=== PATIENT | male | born 1975 | race Caucasian/White ===

== ENCOUNTER 2017-09-24 18:03 | Emergency (ER) | payer SELFPAY ==
--- NOTE | 2017-09-24 16:13 | RAD_ITS ---
STUDY: X-RAY CHEST REASON FOR EXAM: Male, 41 years old. Cough and confusion. TECHNIQUE: Single AP portable view of the chest. COMPARISON: None. FINDINGS: The lungs are poorly expanded. Vague medial right apical density may be summation artifact of the overlapping clavicle head, first rib, and calcified first costal cartilage. There is no demonstrated pleural abnormality. Normal size heart. Normal mediastinum and marc. Normal visualized pulmonary arteries. Normal visualized aortic arch and descending thoracic aorta. There are mild degenerative changes of the lower thoracic spine. Normal visualized ribs, clavicles, and shoulders. There is no demonstrated abnormality of the visualized soft tissue structures of the upper abdomen. RAD/Chest 1 View (Portable) IMPRESSION: X-ray examination of the chest limited by appointment or effort. Vague density versus summation artifact in the right apex. If no previous outside studies are available for comparison, follow-up apical lordotic view and/or repeat exam with improved inspiration advised. Electronically Signed: Silas Nieto MD at 19:30 EST , Service support ,
[2017-09-24 18:03] VITALS: PULSE 79
[2017-09-24 18:04] VITALS: BP 175/99; PULSE 58; RESP 21; TEMP 36.8; O2SAT 97; BMI 29.5
--- NOTE | 2017-09-24 18:56 | ED.RN ---
NEIGHBORS AT BEDSIDE, STATES PT DOES NOT USE ILLEGAL SUBSTANCES, NOR DRINK ETOH. TYPICALLY COMPLETELY INDEPENDENT, DOES OWN SHOPPING, TAKES CARE OF DOGS, LIVES ALONE. NEIGHBORS NOT AWARE OF ANY HEALTH HISTORY. PT CONTINUES TO ANSWER SOME QUESTIONS, MOST ANSWERS INAPPROPRIATE.
--- NOTE | 2017-09-24 19:10 | CT_ITS ---
STUDY: CT BRAIN WITHOUT CONTRAST REASON FOR EXAM: Male, 41 years old. Altered mental status and hypertensive RADIATION DOSAGE (If Supplied By Facility): CTDIvol = ( 44.99 ) mGy, DLP = ( 779.24 ) mGycm TECHNIQUE: Transaxial CT imaging of the brain was performed without administration of intravenous contrast material. Individualized dose optimization techniques were used for this CT. COMPARISON: None. FINDINGS: Normal soft tissue structures. Normal calvarium. Normal size ventricles and extra-axial spaces for the patient's age. Mild nonspecific diffuse cerebral edema.. Normal basal ganglia and thalami. Normal brainstem. Normal cerebellum. Extensive subarachnoid hemorrhage with intraventricular extension. There is prominence of the hemorrhage within the anterior aspect of the [place] of [place] raising question of ruptured aneurysm of the anterior communicating artery. MRA or CTA would be helpful for more definitive evaluation. There are no findings of an acute ischemic infarction. Mild mucosal thickening in the right maxillary sinus. There is an incompletely visualized lesion within the right maxilla possibly due to dental disease. 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 CTA or MRA recommended for more definitive evaluation N.B. : The above information has been verbally conveyed by Patrick Cosby MD to Dr. Gómez Schulte, Referring Physician, on 09/24/2017 20:13:11 (ET). Electronically Signed: Patrick Cosby MD at 19:59 EST , Service support , N.B. : The above information has been verbally conveyed by Patrick Cosby MD to Dr. Gómez Schulte, Referring Physician, on 09/24/2017 20:13:11 (ET).
--- NOTE | 2017-09-24 19:11 | EKG12_ITS ---
Test Reason : Blood Pressure : / mmHG Vent. Rate : 049 BPM Atrial Rate : 049 BPM P-R Int : 146 ms QRS Dur : 110 ms QT Int : 456 ms P-R-T Axes : 034 007 023 degrees QTc Int : 411 ms Sinus bradycardia with Premature atrial complexes Otherwise normal ECG Confirmed by EDDIE CARMICHAEL ([id number]), dictionary editor DEVANG SAMPSON ([id number]) on 09/26/2017 2:56:34 PM Referred By: MIKIE Confirmed By:EDDIE CARMICHAEL
--- NOTE | 2017-09-24 19:20 | NURSING ---
NO OLD EKG'S IN MUSE
[2017-09-24 19:34] LABS: Bacteria 0 SEEN /hpf (None Seen); Mucous, Urine 0 SEEN /hpf (<or=2+)
[2017-09-24 19:35] VITALS: PULSE 51; RESP 21; O2SAT 97
[2017-09-24 19:36] LABS: Color, Urine Yellow (Yellow); Glucose, Dipstick Normal (Normal); Ketone-Dipstick 15 mg/dl (Negative); Leukocyte Esterase-Dipstick 25 /ul (Negative); Nitrite-Dipstick Negative (Negative); Occult Blood-Urine 250 /ul (Negative); Protein-Dipstick 500 mg/dl (Negative); Urine Bilirubin Dipstick Negative (Negative); Urine Clarity Sl. Cloudy (Clear); Urine Urobilinogen Normal (Normal)
[2017-09-24 19:47] LABS: Absolute Lymphocyte Count 1.84 X10^3/ul (0.83-4.51); Absolute Neutrophil Count 17.3 X10^3/uL (2.0-7.7); Basophil# 0.01 X10^3/uL; Eosinophil# 0.01 X10^3/uL; Hematocrit 44.7 % (40-54); Hemoglobin 15.7 g/dl (13.0-16.5); Lymphocyte # 1.84 X10^3/ul (4.0); Lymphocyte % 8.7 % (19-41); Mean Corp Hgb Conc 35.1 g/gl (32-36); Mean Corpuscular Hgb 32.3 pg (27.0-32.0); Mean Platelet Vol. 10.4 fl (6.2-12.0); Monocyte# 1.99 X10^3/uL; Monocyte% 9.4 % (0-10); Neutrophil # 17.25 X10^3/uL (2.7-7.7); Neutrophil % 81.7 % (47-70); Platelet Count 254 K/mm3 (150-450); RBC Distribution Width CV 13.3 % (11.6-14.6); RBC Distribution Width SD 44.5 fl (35.1-43.9); Red Blood Count 4.86 M/mm3 (4.6-6.2); White Blood Count 21.2 K/mm3 (4.4-11.0)
[2017-09-24 19:48] LABS: International Normalized Ratio 1.1; POSITIVE COUNT NO; POSITIVE MORPHOLOGY NO; Prothrombin Time (Protime)PT. 13.5 SECONDS (11.7-14.9)
[2017-09-24 19:49] LABS: Partial Thromboplast Time 25.5 Seconds (24.1-36.2)
[2017-09-24 19:52] LABS: Differential Indicated SCAN CRITERIA MET; POSITIVE DIFFERENTIAL YES
[2017-09-24 19:56] LABS: Amphetamine Urine VISTA NEGATIVE (<1000 ng/mL); Barbiturate Urine VISTA NEGATIVE (< 200 ng/mL); Benzodiazepine Urine VISTA NEGATIVE (< 200 ng/mL); Cocaine Urine VISTA NEGATIVE (< 300 ng/mL); Ecstacy Urine VISTA NEGATIVE (< 500 ng/mL); Methadone Urine VISTA NEGATIVE (< 300 ng/mL); PCP Urine VISTA NEGATIVE (< 25 ng/mL); THC Urine VISTA NEGATIVE (< 50 ng/mL); Vista UDS pH Range 6
[2017-09-24 19:56] LABS: ALB/GLOB Ratio 0.9 RATIO (0.9-2.4); AST(SGOT) 183 U/L (15-37); Alanine Aminotransfer ALT/SGPT 72 U/L (16-61); Alkaline Phosphatase 51 U/L (45-117); Anion Gap 9 (5-15); BUN 20 mg/dL (7-18); BUN/Creat Ratio 23.4 RATIO (10-20); Calcium,Total 9.1 mg/dL (8.5-10.1); Chloride 105 mmol/L (98-107); Creatinine, Serum 0.86 mg/dL (0.70-1.30); EST Glomerular Filtration Rate 105 mL/min (>60); Est Glom Filt Rate - Afr Amer 127 mL/min (>60); Estimated Creatinine Clearance 106.75 ml/min; Globulin 4.4 g/dL (2.2-4.2); Glucose 114 mg/dL (74-106); Potassium 3.7 mmol/L (3.5-5.1); Protein, Total 8.4 g/dL (6.4-8.2); Sodium Level 138 mmol/L (136-145)
[2017-09-24 20:01] LABS: Bedside Glucose 129 mg/dL (70-110)
[2017-09-24 20:11] LABS: Lactic Acid 1.4 mmol/L (0.4-2.0)
[2017-09-24 20:14] LABS: Carboxyhemoglobin Frac (CO) 0.5 % (0.0-1.5)
[2017-09-24 20:14] LABS: Differential Comment SCANNED
[2017-09-24 20:17] LABS: Red Blood Cells-Urine 10-25 SEEN /hpf (0-5); Squamous Epithelial Cells - UA 0-5 SEEN /hpf (0-5); White Blood Cells 0-5 SEEN /hpf (0-5)
[2017-09-24] MEDS: Lidocaine 2% 100 MG/5 ML Syringe IV BOLUS (20:42)
[2017-09-24] MEDS: Rocuronium Bromide 50 MG/5 ML Vial 100 MG IV (20:44)
[2017-09-24] MEDS: Ketamine HCl 500 MG/5 ML Vial 100 MG IV (20:56)
--- NOTE | 2017-09-24 21:00 | ED.RN ---
INTUBATED AT 2045 BY CIRILO ROSENBERG [facility] [employer]. SEE DOCUMENTATION
--- NOTE | 2017-09-24 21:03 | ED.RN ---
RECEIVED [facility] AND BRYAN FROM PHARMACY [facility] WAS GETTING TO BEDSIDE. [facility] WANTED TO ADMINISTER EN ROUTE, MEDICATIONS GIVEN TO CIRILO ROSENBERG.
[2017-09-24 21:05] VITALS: BP 172/91; PULSE 51; RESP 18; O2SAT 100
--- NOTE | 2017-09-24 21:18 | ED.RN ---
AT 2041 [facility]ATH[facility] WRIST RESTRAINTS WERE CHANGED TO SOFT FOR TRANSFER, PER [facility] REQUEST. PT LEFT HERE IN SOFT RESTRAINTS, INTUBATED, ON [facility]'S VENT AT 2105
--- NOTE | 2017-09-24 21:20 | NURSING ---
AT 2049 [facility] TOOK OVER MEDICATIONS, THEY ARE NOW IN CONTROL OF SEDATIONS, PAIN AND BP CONTROL VIA MEDICATIONS.
--- NOTE | 2017-09-25 01:44 | ED.VISSUMM ---
- ER Visit Summary Date of Service: 09/25/17 Chief Complaint: Altered mental status History of Present Illness: The patient is a 41 M presenting for evaluation secondary to altered mental status. Patient was last seen normal couple days ago, and a neighbor had not heard from him so came over to check on him and noted that he was minimally responsive laying in his own urine on the couch. Patient was brought into the emergency department at that point. Patient is not able to provide any sort of additional history. Physical Examination: Vital signs notable blood pressure 170/91. Well-nourished male unkempt otherwise not in acute distress. Head normocephalic. PRL, with left-sided subconjunctival hemorrhage noted. Neck was supple. Heart regular rate and rhythm. Lungs clear. Abdomen soft nontender. Extremities nonedematous. Skin normal color no rash. Patient was alert, would intermittently verbalize yes and no answers, and would follow directions bilaterally with the arms and legs. GCS was 12. Test Results: CT brain shows spontaneous subarachnoid hemorrhage with extension into the ventricles. EKG shows sinus rate of [address] segments. CBC shows leukocytosis, chemistry unremarkable, carbon monoxide negative, toxicology negative, liver panel shows mildly elevated AST, urinalysis shows some blood in the urine, troponin negative Emergency Department Course and Treatment: Patient presented secondary to undifferentiated altered mental status. CT and lab demonstrating the patient to have a likely spontaneous subarachnoid hemorrhage.we do not have nimodipine to administer at this time. I contacted [facility] for transfer, neurosurgery requested the patient to be given a gram of Keppra and be started on a Cardene drip. Patient was to be transferred by [facility], but was combative and there was concerns for safety during transport so the decision was made to sedate the patient and intubate him. He was pretreated with lidocaine, and RSI was given with ketamine and rocuronium. 8.0 tube was passed using [employer]. There is normal CO2 on end-tidal CO2 detection, good bilateral breath sounds, tube was secured and the patient was transferred via air to [facility] for further management. Disposition: Transfer Impression: 1. Subarachnoid hemorrhage 2. Intubation by ed physician Critical care time 45min This note was generated with [employer] dictation software. It may contain incorrect words, spelling, and punctuation that were not noted in review of the chart prior to signing ED Disposition - Plan for ED Patient: Disposition: [facility] Chief Complaint: Alt LOC Referrals: Care Physician,No Primary [Primary Care Provider] -
[2017-09-25 09:18] LABS: Pathologist Review Reviewed
== END 2017-09-24 21:15 | disposition short-term general hospital (02) ==
PROVIDERS: Emergency Provider Emergency Medicine
DX: I60.9 Nontraumatic subarachnoid hemorrhage, unspecified (principal); R41.82 Altered mental status, unspecified; Z72.0 Tobacco use
CPT/HCPCS: 31500; 70450; 71045; 80053; 80307; 80320; 81001; 82375; 82962; 83605; 84484; 85025; 85610; 85730; 93005; 99285; J7030; A4216; G0480